=== PATIENT | female | born 1960 | race Caucasian/White ===

== ENCOUNTER 2019-01-24 05:30 | Day surgery (SDC) | payer OTHER ==
[~2019-01-24 05:30] MED LIST: ATACAND HCT 321 EAC1 PO; FARXIGA5 MG PO; JANUMET 50-1,01 EACH PO; LIPITOR20 MG PO
== END 2019-01-24 10:00 | disposition home or self-care (01) ==
LOC: CIR.AMB 05:30 → ADM 15:15
DX: G56.01 Carpal tunnel syndrome, right upper limb (principal)